=== PATIENT | male | born 1940 | race Caucasian/White ===

== ENCOUNTER 2018-08-31 16:36 | Inpatient (IN) ==
[2018-08-31] MEDS ORDERED: ICU PROTOCOL FOR HYPERGLYCEMIA PRN (19:27)
[2018-08-31] MEDS ORDERED: PIPERACILL/TAZOBAC CONSULT ACTIVE PRN (20:12)
[2018-08-31] MEDS ORDERED: VANCOMYCIN CONSULT ACTIVE PRN (20:12)
[2018-08-31] MEDS ORDERED: VANCOMYCIN HCL 1,000 MG in SODIUM CHLORIDE 0.9% 250 ML IV SCH (20:20)
[2018-08-31] MEDS ORDERED: PATIENT'S HEIGHT AND/OR WEIGHT NEEDED SCH (20:30)
[2018-08-31] MEDS ORDERED: PIPERACILLIN/TAZOBACTAM 3.375 GM in DEXTROSE 5% 100 ML IV ONE (21:00)
[2018-08-31] MEDS ORDERED: VANCOMYCIN HCL 2,000 MG in SODIUM CHLORIDE 0.9% 500 ML IV ONE (21:00)
[2018-08-31 21:14] LABS: Est GFR (African American) 65.2; Est GFR (Non-African American) 56.3
[2018-08-31] MEDS: DOXYCYCLINE HYCLATE 100 MG in DEXTROSE 5% 100 ML IV SCH (21:14)
[2018-08-31] MEDS: SODIUM CHLORIDE 0.9% 1000ML 1,000 ML IV SCH (21:14)
[2018-08-31 21:51] LABS: Appearance Urine Clear (Clear); Bacteria Urine Automated Negative (Negative); Bilirubin Urine Negative (Negative); Blood Urine 3+ (Negative); Color Urine Yellow; Glucose Urine UA Negative (Negative); Ketones Urine Negative (Negative); Leukocyte Esterase Urine Negative (Negative); Nitrite Urine Negative (Negative); Protein Urine 1+ (Negative); Specific Gravity Urine 1.016 (1.000-1.030); Urobilinogen Urine Negative (Negative); pH Urine 5.5 (4.5-7.5)
--- NOTE | 2018-08-31 21:53 | Critical Care Consultation ---
Date of Consultation August 31, 2018 Assessment & Plan (1) Admitted to intensive care unit: Reason Critically Ill: 77-year-old male with acute febrile illness with concerns of sepsis requiring volume resuscitation and close hemodynamic monitoring. Thrombocytopenia with febrile illness and concerns for anaplasmosis. NEURO - * CAM ICU: NEGATIVE * Generalized weakness, myopathy. * Likely 2/2 febrile illness. * No focal neurological deficits on exam. * No imaging necessary at this time. * Will monitor closely for changes in mental status in the thrombocytopenic patient with Anaplasmosis as this can be a common sequela. CARDIAC/VASCULAR - * Hypotension: * SBPs in the 90s in the [place] ED. * Received 2.5L IVF. * Maintaining pressures w/o pressors at this time. * Low threshold for institution of pressors if needed as patient did receive adequate IVF resuscitation. * PMHx HTN: * Will hold on home Rx at this point in the setting of hypotension. * EKG (at outside facility): Sinus Tachycardia@103bpm, No ST/T-wave changes noted. QTc 407ms. * Monitor on telemetry. RESPIRATORY - * Former smoker. * No h/o Pulmonary disease. * Monitor Pulse oximetry closely. * Supplemental O2 PRN. GI/NUTRITION - * No concerns at this time. * CT Abd/Pelvis w/o contrast w/o c/o intraabdominal pathology at this point. * Will add LFTs to next labs as Anaplasmosis is known to cause transaminitis. * Prophylaxis: Zantac RENAL/LYTES - * [place] (presumed): * Initial Cr 1.49 --> no baseline labs present. * Repeat Cr at this facility shows improvement w/ Cr now 1.23. * Will continue to trend. * Replace Lytes appropriately. * Hyponatremia (slight): * Received NSS at ED. * Less concerning for potential of ODS at this time. * IVF: NSS@150mL/hr - * Tyson in place - Strict I&Os. ENDO - * No h/o DM or Thyroid Dz: * BSGs per unit protocol. ISS --> gtt per unit policy. 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 * Initial platelet count of 35 K/uL. * Will monitor closely for s/s of bleeding. Would transfuse at that time if necessary. * No need for transfusion at this time. * Would consider transfusing w/ count less than 20. * Stable H&H at this point. ID - * Anaplasmosis: * Presented at outside facility w/ febrile illness, generalized weakness, myopathies, and chills. Found to be thrombocytopenic. Concerns of recent tick bites. * Agree with addition of Doxy pending Peripheral blood smear results. * Lyme and Anaplasmosis serology pending. Will add Ehrlichiosis screening for completeness. * Anticipate rapid deescalation of antibiotics as peripheral blood smear concerning for anaplasmosis and patient is w/o other contributing sources at this time. * Lactate not elevated. LINES/IV ACCESS - * PIVs x1 * Tyson DVT PROPHYLAXIS - * Will hold on chemoprophylaxis in the setting of thrombocytopenia. * SCDs I have personally spent 35 minutes of critical care time in the direct management of this patient. This is a life/limb threatening event. This includes time spent evaluating patient, direct bedside care, chart review, placing orders, interpretation of diagnostic studies, discussion with consultants, patient, and family members, as well as other required patient management activities. This time is exclusive of all separately billable procedures, and teaching time and separate from and in addition to any other critical care service time. Thank you for allowing us to participate in the care of this patient. Please refer to my attending physician's documentation for any further recommendations. (2) Thrombocytopenia: (3) Hypotension: (4) Infection: (5) Generalized weakness: (6) Myopathy: (7) Joint pain: History of Present Illness Attending Physician: Jamel Rosales MD Patient is a 77-year-old male with a significant past medical history of hypertension who was accepted in transfer by hospitalist group for concerns of sepsis. The patient was seen today at the [place] emergency department for a 4 to 5-day history of generalized weakness, body aches, and chills. He was treated with 2.5 L of normal saline and received IV Rocephin as well as Levaquin. There was concern for possible UTI as the patient was complaining of some apparent dysuria. Other than the above-stated complaints, he currently denies any headaches, dizziness, lightheadedness, chest pain, palpitations, shortness of breath, productive cough, recent upper respiratory infections, recent sick contacts, recent long distance travel, nausea, vomiting, abdominal pain, hematochezia, melena, hematuria, or dysuria. Patient does admit to several tick bites recently as he reports living in an area with a high density of ticks. Allergies Allergy/AdvReac Type Severity Reaction Status Date / Time No Known Allergies Allergy Verified 08/31/18 20:23 Home Medications Home Medications Medication Instructions Recorded Confirmed Type hydrochlorothiazide 25 mg PO DAILY 08/31/18 08/31/18 History pravastatin 20 mg PO DAILY 08/31/18 08/31/18 History ranitidine HCl 150 mg PO DAILY 08/31/18 08/31/18 History Patient History Social History Preferred Language: Israeli Communication Ability: Effective Beliefs That Will Affect Care: None Current Living Situation: Spouse Other Information That Helps Us Care for You: No Feels Safe at Home: Yes Safety Concerns: Feels Safe At This Time Smoking Status: Never smoker Do You Dip or Chew Tobacco: No Second Hand Exposure: No Tobacco Cessation Education Requested by Patient: No Hx Alcohol Use: No Hx Substance Use: No Review of Systems Review of Systems: A complete 10 point review of systems was reviewed with the patient with pertinent positives and negatives as per history of present illness. All else were negative. Physical Exam Physical Exam: VITAL SIGNS - Vital signs and nursing notes were reviewed. GENERAL - 77-year-old male appearing his stated age who is in no acute distress. Communicates well with provider and answers questions appropriately. SKIN - Without rashes. HEAD - NC/AT. EYES - PERRL with EOMI bilaterally. Sclera anicteric. Palpebral conjunctiva pink and moist with no injection noted. EARS - No deformities of external structures noted on gross examination bilaterally. No pain elicited with palpation of the tragus bilaterally. External auditory canals without discharge or otorrhea. Tympanic membranes pearly keating without retraction or bulging. No fluid or purulent material visualized behind the TM. Handle of malleus, umbo, cone of light, pars tensa/flaccid all easily visualized. NOSE - Midline and without cyanosis. No epistaxis or purulent drainage noted. Septum midline without deviation or septal hematoma noted. MOUTH/OROPHARYNX - Without perioral cyanosis. Buccal mucosa pink and moist and without leukoplakia. Tongue midline with equal elevation of palate bilaterally. No tonsillar hypertrophy, erythema, or exudates noted. Good dentition noted. NECK - Neck with FROM. No nuchal rigidity. LUNGS - Chest wall symmetric without accessory muscle use, intercostals retractions, or central cyanosis. Normal vesicular breath sounds CTA B/L. No wheezes, rales, or rhonchi appreciated. CARDIAC - RRR with S1/S2. No murmur, rubs, or gallops appreciated. ABDOMEN - Abdominal contour flat without pulsations or visible masses. BS normoactive all four quadrants. No tenderness, palpable masses, hepatosplenomegaly, or ascites noted. EXTREMITIES - No clubbing or peripheral cyanosis. No pretibial edema present. +3/5 radial and dorsalis pedis pulses palpated throughout. +5/5 strength noted in UE/LE bilaterally. NEUROLOGIC - Cranial nerves II through XII grossly intact. Sensory intact to light touch throughout. PSYCH - A&Ox3 and cooperates fully with examiner. Pt is very pleasant and interacts well with examiner. Results & Data Vital Signs (Past 12 Hours) Vital Signs Temp Pulse Resp BP Pulse Ox 08/31/18 20:00 37.7 C H 99 H 22 94/54 L 94
[2018-08-31 21:57] LABS: Lyme Ab IgG w/WB Rflx Negative (Negative); Lyme Ab IgM w/WB Rflx Negative (Negative)
[2018-09-01] MEDS ORDERED: PIPERACILLIN/TAZOBACTAM 3.375 GM in DEXTROSE 5% 100 ML IV SCH (02:00)
[2018-09-01 05:36] LABS: Hemoglobin 10.7 g/dL (14.0-18.0); Mean Corpuscular Hgb Conc 34.5 g/dL (32-36); Mean Corpuscular Volume 89.6 fL (80-100); Mean Platelet Volume 12.4 fL (7.4-10.4); Platelet Count 24 K/uL (130-400); RDW Coefficient of Variation 14.5 % (11.5-14.5); RDW Standard Deviation 47.5 fL (36.4-46.3); Red Blood Count 3.46 M/uL (4.7-6.1); White Blood Count 2.86 K/uL (4.8-10.8)
[2018-09-01] MEDS: SODIUM CHLORIDE 0.9% 1000ML 1,000 ML IV SCH ×2 (05:36→12:14)
[2018-09-01 05:39] LABS: Platelet Estimate SIGNIFIC DECREASED (Normal)
[2018-09-01 05:48] LABS: BUN Creatinine Ratio 18.2 (10-20); Bilirubin Direct 0.3 mg/dl (0-0.2); Calcium 6.6 mg/dl (8.5-10.1); Creatinine Clr Calc Pharmacy 51.2 ml/min; Est GFR (African American) 72.3; Est GFR (Non-African American) 62.4; Magnesium 1.8 mg/dl (1.8-2.4); Potassium 3.2 mmol/L (3.5-5.1)
[2018-09-01 05:51] LABS: Albumin Globulin Ratio 0.7 (0.9-2); Bilirubin,Total 0.6 mg/dl (0.2-1); Globulin 2.8 gm/dl (2.5-4.0); Phosphorus 2.3 mg/dl (2.5-4.9); Total Protein 4.8 gm/dl (6.4-8.2)
[2018-09-01] MEDS: DOXYCYCLINE HYCLATE 100 MG in DEXTROSE 5% 100 ML IV SCH ×2 (08:33→21:37)
--- NOTE | 2018-09-01 08:55 | History and Physical Report ---
DATE OF ADMISSION: 08/31/2018 CHIEF COMPLAINT: Sepsis. HISTORY OF PRESENT ILLNESS: This is a 77-year-old male with past medical history significant for hyperlipidemia, sarcoidosis of lung, hypertension, GERD, who was transferred from [facility] here for possible sepsis. The patient lives with his . The patient has had weakness since last 4 days and ambulatory dysfunction, tired and falling at home and he was taken to [facility] where he was found to have temperature spike, hypotension and pancytopenia with white count of 3.9, hemoglobin 13.2 and platelets of 35. UA was negative. Lactic acid was 1.7. Chest x-ray is unremarkable. CT of abdomen and pelvis was done before transfer, it is not brought with the patient, they are faxing the results. The patient was given a 30 mL/kg bodyweight fluids, systolic blood pressure is currently in 90s. He otherwise seems to be stable at this time. The patient has history of tick bites in the past. When asked about it, he showed me the left lower extremity jessica region, small lesion, possibly tick bite. He has some headaches, no dizziness, no blurred vision, no earache, no runny nose, no sore throat, no difficulty swallowing. No chest pain, no shortness of breath. No cough, no abdominal pain. Normal bowel and bladder movements. No blood in the stools, no black stools, no hematuria, no burning micturition. No swelling of the legs. ALLERGIES: SIMVASTATIN. PAST MEDICAL HISTORY: As mentioned above. PAST SURGICAL HISTORY: None. MEDICATIONS: The patient is on pravastatin 20 mg p.o. daily, [id number] mg p.o. daily, hydrochlorothiazide 25 mg p.o. daily. FAMILY HISTORY: Significant for skin disorder. SOCIAL HISTORY: Chews tobacco. Alcohol occasional. No drug use. REVIEW OF SYMPTOMS: As per HPI. Rest of review of systems negative. PHYSICAL EXAMINATION: GENERAL: The patient is of moderate build, not in acute distress. VITAL SIGNS: Systolic blood pressure in the 90s, heart rate in like 102, currently afebrile. HEENT: No pallor, no icterus. Pupils equal, round and reactive. NECK: No JVD, no neck mass, no carotid bruit. CARDIOVASCULAR: S1, S2 heard, regular rate and rhythm, no murmur, no gallop. RESPIRATORY SYSTEM: Normal AP diameter. No accessory muscle use. No wheezing, no crackles. ABDOMEN: Soft, bowel sounds present. Nontender. No distention. CENTRAL NERVOUS SYSTEM: Cranial nerves II-XII grossly intact, nonfocal. EXTREMITIES: No edema. Small lesion on the left lower extremity jessica region, questionable tick bite. LABS: Labs done at [facility] shows WBC of 3.9, hemoglobin 13.2, hematocrit 39 and platelets 35. Sodium 129, potassium 3.8, chloride 94, CO2 of 21, BUN 32, creatinine 1.4, serum calcium 7.9. Urinalysis negative for leukocyte esterase and nitrites, moderate blood seen. Lactic acid is 1.7. Chest x-ray, no pneumothorax, no acute osseous process. No pneumonia. Influenza A and B negative. CT abdomen and pelvis was done. We will wait for the results. ASSESSMENT AND PLAN: This is a 77-year-old male who presents with sepsis. 1. Sepsis with hypotension, fever, tachycardia: Lactic acid 1.7, source unclear. Pancytopenia with low platelet count and leukopenia, possible tick-borne illness. History of tick bite in the past, looks like that the lesion in the Left jesisca possible tick bite. There is question of sepsis from UTI.l. We will place him on IV doxycycline, IV Zosyn and IV vancomycin and blood culture, urine cultures,Will check Lyme screen and also peripheral smear for inclusion bodies and we will check for anaplasmosis. Monitor closely in the Intensive Care Unit. 2. Hyponatremia. Sodium 129, IV fluids. We will follow the labs. 3. Acute kidney injury: baseline creatinine is 1.2, presently 1.4. We will follow the labs. 4. Hypertension: On hydrochlorothiazide, which we will hold. 5. Hyperlipidemia: On pravastatin which we will hold. 6. Gastroesophageal reflux disease: On Zantac, which we will continue. 7. Deep venous thrombosis prophylaxis: Sequential compression devices for now. 8. Disposition: Close monitor in the Intensive Care Unit. Level 1 full code. MTDD
[2018-09-01] MEDS ORDERED: POTASSIUM PHOS 3 MMOL/1 ML INFUSION IV STA ×2 (10:05→16:00)
[2018-09-01] MEDS: POTASSIUM CHLORIDE / WTR 10 MEQ/100 ML PLCT IV SCH ×2 (10:15→12:15)
--- NOTE | 2018-09-01 10:20 | Hospitalist Progress Note ---
Date of Service September 01, 2018 Assessment & Plan (1) Severe sepsis: Meets criteria for sepsis as per CMS guideline-presented with hypotension, BP 94/54, tachycardia heart rate 102, fever 37.7 Neutropenia WBC 2.8 Source of infection: Anaplasmosis Recent history of tick bite, peripheral blood smear shows: Small blue cytoplasmic inclusions within polymorphonuclear neutrophils - suspicious for anaplasmosis organisms. Patient was initially treated with IV vancomycin/Zosyn/IV doxycycline-(2 g of IV Rocephin loading dose in [facility] ER) Admitted in ICU for close monitoring of hemodynamics, appreciate input from the evp strategy IV vancomycin/Zosyn-D/rock Continue IV doxycycline 100 mg every 12 [id number] of treatment for anaplasmosis ID evaluation requested Patient will be continued with aggressive IV fluid resuscitation, to correct volume status/dehydration BP improved to 104/74, with resolution of tachycardia Has been afebrile for the past 12 hours-after initiation of antibiotics (2) Anaplasmosis: History of recent tick bite: Left lower extremity anterior jessica, patient does not recall when he got it No characteristic rash/erythema migrans noted in any part of the body Presents with for 5 days of low-grade fever, weakness fatigue, headache, poor appetite Lab shows pancytopenia, including pronounced thrombocytopenia, Peripheral blood smear: Small blue cytoplasmic inclusions within polymorphonuclear neutrophils - suspicious for anaplasmosis organisms. Continue treatment with IV doxycycline ID evaluation requested Present on Admission?: Yes (3) Hypotension: Secondary to poor p.o. intake, dehydration, no report of nausea vomiting or diarrhea CT abdomen pelvis done in outside hospital/located in ED showed no acute pathology Patient responded well with IV fluid resuscitation Did not require pressors No evidence of acute kidney injury, adequate urine output Continue IV fluids, ordered diet, Nutrition consulted for dietary supplements Continue to monitor in ICU until blood pressure stabilizes Present on Admission?: Yes (4) Thrombocytopenia: Secondary to anaplasmosis Platelet count 54 Peripheral blood smear shows no evidence of schistocytes or giant cell Continue to monitor CBC, no evidence of bleeding complication Avoid antiplatelets, anticoagulation Current guideline for platelet transfusion: Platelet count less than 10 K with evidence of bleeding Present on Admission?: Yes (5) Pancytopenia: Due to anaplasmosis-infection leading to bone marrow suppression Peripheral blood smear shows no evidence of any abnormal blast cell Continue supportive care with IV fluids, treatment with IV doxycycline Follow day the CBC Gradual improvement of all cell counts once acute infection is getting resolved Present on Admission?: Yes (6) Hyponatremia: Secondary to poor p.o. intake, dehydration No complaint of nausea vomiting or diarrhea At home medication/antihypertensive HCTZ kept on hold IV fluid with normal saline Noted to have gradual improvement of sodium Continue to monitor Diet advanced Patient is encouraged for fluid intake Present on Admission?: Yes (7) Electrolyte abnormality: Low up with potassium, low phosphorus, possible secondary to acute il lness, poor p.o. intake/dehydration No report of any GI loss Potassium phosphorus replaced, repeat BMP mag level at 1400 Electrolyte closely and adjust as indicated Present on Admission?: Yes (8) Full code status: Discussed with Patient, Full Resuscitation/Patient Is a Full Code (9) DVT prophylaxis: SCD and teds, increase activity as tolerated Pharmacological anticoagulation prohibitive in the setting of thrombocytopenia/anemia Disposition: Lives at home with , was independent in ADLs Noted to have significant functional decline in last 1 week secondary to acute illness Out of bed as tolerated-when blood pressure is stable PT OT evaluation Social service consult for discharge planning for possible rehab versus home health home physical therapy Patient's Krupa Adrian updated over phone Subjective Patient seen in ICU 104, alert and awake, systolic blood pressure 104/56 Patient says he feels very tired, wiped out, no complaint of headache, chest pain or shortness of breath, no abdominal discomfort, no nausea Continues to get IV fluids normal saline at rate of 150 mL/h, with adequate urine output in Tyson catheter Patient has been afebrile, since last midnight Physical Exam Constitutional: WD/WN, vitals as above + ill appearing; no acute distress Eyes: + anicteric sclerae ENMT: Mouth: + oral mucosal abnormality (Dry oral mucosa) Dry oral mucous membrane Neck: trachea midline, no thyromegaly Respiratory: normal respiratory effort, lungs clear to auscultation Cardiovascular: RRR, no murmur, no edema Gastrointestinal (Abdomen): normal bowel sounds, soft, nontender, no hepatosplenomegaly Musculoskeletal: Small 2 mm wound noted on jessica of left lower extremity, no surrounding erythema, no typical rash suggestive of Lyme disease /no erythema migraines- Skin: + wound Small 2 mm open wound on left lower extremity, anterior jessica, at the site of prior tick bite, no surrounding erythema, no rash or erythema migrans No other rash or skin lesion/wound noted in any other part of the body Neurologic: PERRL, EOMI, accommodation nl, no face palsy, no dysarthria Patient denies of any diplopia, no weakness or paresthesia Psychiatric: A+Ox3, euthymic affect Results & Data Vital Signs (Past 12 Hours) Vital Signs Temp Pulse Pulse Resp BP BP Pulse Ox 09/01/18 10:02 75 16 104/56 L 93 09/01/18 09:02 76 1 L 102/56 L 94 09/01/18 08:02 36.1 C L 77 103/56 L 93 09/01/18 06:00 36.9 C 75 18 101/56 L 97 09/01/18 05:00 75 20 99/54 L 96 09/01/18 04:00 75 18 102/50 L 96 09/01/18 03:00 37.7 C H 76 20 98/51 L 96 09/01/18 02:00 78 18 99/50 L 78 L 09/01/18 01:00 83 18 100/50 L 96 09/01/18 00:00 37.4 C 86 18 99/50 L 97 08/31/18 23:00 91 H 20 102/53 L 94 (1) Hypotension Hypotension type: hypotension due to hypovolemia Qualified Code(s): I95.89 - Other hypotension; E86.1 - Hypovolemia
--- NOTE | 2018-09-01 10:21 | Critical Care Progress Note ---
Date of Service September 01, 2018 Assessment & Plan (1) Admitted to intensive care unit: Neuro- awake alert CV- HD stable Pulmonary- sat well ID- sepsis with evidence of organ dysfunction likely due to anaplasmosis. doxycycline. follow cultures Renal- cr ok. urinary retention s/p babcock GI- diet as tolerated Heme- pancytopenia likely related to anaplasmosis. watch for bleeding. SCD proph Endocrine- blood sugars controlled Dispo- ok to transfer to floor Subjective feelin better this ma blood pressures remained stable Physical Exam Physical Exam: Constitutional: Comfortable NAD HEENT: normocephalic atraumatic. CV: RRR nl s1,s2 no murmurs rubs or gallops Lungs: clear to auscultation bilaterally. no accessory muscle use Abd: soft nontender nondistended. normal bowel sounds Ext: no edema. no cyanosis, no clubbing Skin: warm dry Neuro: alert and oriented. moving all extremities Psych: normal mood and affect Results & Data Vital Signs (Past 12 Hours) Vital Signs Temp Pulse Pulse Resp BP BP Pulse Ox 09/01/18 10:02 75 16 104/56 L 93 09/01/18 09:02 76 1 L 102/56 L 94 09/01/18 08:02 36.1 C L 77 103/56 L 93 09/01/18 06:00 36.9 C 75 18 101/56 L 97 09/01/18 05:00 75 20 99/54 L 96 09/01/18 04:00 75 18 102/50 L 96 09/01/18 03:00 37.7 C H 76 20 98/51 L 96 09/01/18 02:00 78 18 99/50 L 78 L 09/01/18 01:00 83 18 100/50 L 96 09/01/18 00:00 37.4 C 86 18 99/50 L 97 08/31/18 23:00 91 H 20 102/53 L 94 Laboratory Results Laboratory Results - last 24 hr 08/31/18 08/31/18 08/31/18 20:34 20:34 20:40 WBC RBC Hgb Hct MCV MCH MCHC RDW Std Deviation RDW Coeff of Isiah Plt Count MPV Platelet Estimate Peripher Smr Path Cons Sodium Potassium Chloride Carbon Dioxide Anion Gap BUN Creatinine Est Cr Clr Drug Dosing Est GFR ( Amer) Est GFR (Non-Af Amer) BUN/Creatinine Ratio Glucose Lactate 1.5 Calcium Phosphorus Magnesium Total Bilirubin Direct Bilirubin AST ALT Alkaline Phosphatase Total Protein Albumin Globulin Albumin/Globulin Ratio Urine Color Urine Appearance Urine pH Ur Specific [place] Urine Protein Urine Glucose (UA) Urine Ketones Urine Blood Urine Nitrite Urine Bilirubin Urine Urobilinogen Ur Leukocyte Esterase Urine WBC (Auto) Urine RBC (Auto) U Hyaline Cast (Auto) U Epithel Cells (Auto) Urine Bacteria (Auto) Nasal Screen MRSA (PCR) Lyme Disease IgG Ab Negative Lyme Disease IgM Ab Negative 08/31/18 08/31/18 08/31/18 20:40 21:15 Unknown WBC RBC Hgb Hct MCV MCH MCHC RDW Std Deviation RDW Coeff of Isiah Plt Count MPV Platelet Estimate Peripher Smr Path Cons Sodium Potassium Chloride Carbon Dioxide Anion Gap BUN Creatinine 1.23 Est Cr Clr Drug Dosing 47.0 Est GFR ( Amer) 65.2 Est GFR (Non-Af Amer) 56.3 BUN/Creatinine Ratio Glucose Lactate Calcium Phosphorus Magnesium Total Bilirubin Direct Bilirubin AST ALT Alkaline Phosphatase Total Protein Albumin Globulin Albumin/Globulin Ratio Urine Color Yellow Urine Appearance Clear Urine pH 5.5 Ur Specific [place] 1.016 Urine Protein 1+ H Urine Glucose (UA) Negative Urine Ketones Negative Urine Blood 3+ H Urine Nitrite Negative Urine Bilirubin Negative Urine Urobilinogen Negative Ur Leukocyte Esterase Negative Urine WBC (Auto) 1-5 Urine RBC (Auto) 10-30 H U Hyaline Cast (Auto) 1-5 U Epithel Cells (Auto) 10-20 H Urine Bacteria (Auto) Negative Nasal Screen MRSA (PCR) Negative Lyme Disease IgG Ab Lyme Disease IgM Ab 09/01/18 09/01/18 04:48 04:48 WBC 2.86 L RBC 3.46 L Hgb 10.7 L Hct 31.0 L MCV 89.6 MCH 30.9 MCHC 34.5 RDW Std Deviation 47.5 H RDW Coeff of Isiah 14.5 Plt Count 24 L* MPV 12.4 H Platelet Estimate SIGNIFIC DECREASED Peripher Smr Path Cons Sodium 134 L Potassium 3.2 L Chloride 106 Carbon Dioxide 23 Anion Gap 5.0 BUN 21 H Creatinine 1.13 Est Cr Clr Drug Dosing 51.2 Est GFR ( Amer) 72.3 Est GFR (Non-Af Amer) 62.4 BUN/Creatinine Ratio 18.2 Glucose 97 Lactate Calcium 6.6 L Phosphorus 2.3 L Magnesium 1.8 Total Bilirubin 0.6 Direct Bilirubin 0.3 H AST 77 H ALT 55 Alkaline Phosphatase 57 Total Protein 4.8 L Albumin 2.0 L Globulin 2.8 Albumin/Globulin Ratio 0.7 L Urine Color Urine Appearance Urine pH Ur Specific [place] Urine Protein Urine Glucose (UA) Urine Ketones Urine Blood Urine Nitrite Urine Bilirubin Urine Urobilinogen Ur Leukocyte Esterase Urine WBC (Auto) Urine RBC (Auto) U Hyaline Cast (Auto) U Epithel Cells (Auto) Urine Bacteria (Auto) Nasal Screen MRSA (PCR) Lyme Disease IgG Ab Lyme Disease IgM Ab
[2018-09-01] MEDS ORDERED: POTASSIUM PHOSPHATE 6 MMOL in SODIUM CHLORIDE 0.9% 250 ML IV ONE (10:30)
[2018-09-01] MEDS ORDERED: VANCOMYCIN HCL 1,250 MG in SODIUM CHLORIDE 0.9% 250 ML IV SCH (14:00)
[2018-09-01 15:11] LABS: BUN Creatinine Ratio 18.1 (10-20); Creatinine Clr Calc Pharmacy 55.1 ml/min; Est GFR (Non-African American) 68.1; Magnesium 1.9 mg/dl (1.8-2.4); Potassium 3.6 mmol/L (3.5-5.1)
--- NOTE | 2018-09-01 15:32 | Infectious Disease Consult ---
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 Treatment with doxycycline appropriate, will likely need in the range of 7 to 10 days of therapy depending on clinical response. Would follow CBC and liver enzymes. Will follow. History of Present Illness Reason for Consultation: Sepsis, anaplasmosis Attending Physician: Clari Jurado MD History of Present Illness 77-year-old male with history of hypertension, sarcoidosis, hyperlipidemia, GERD, who was in usual state of health until approximately 5 days prior to admission when he had onset of fever, weakness, and generalized myalgias and arthralgias with mild headache. Symptoms gradually worsening and it became difficult for patient to walk, and eventually he was brought to [facility] where he was found to have evidence of sepsis associated with neutropenia and thrombocytopenia and transferred here for further management. On review of his peripheral smear, intra-cytoplasmic inclusions consistent with anaplasmosis were seen. He is now been started on doxycycline and is feeling better today with decrease in temperature, negative blood cultures, and decrease in myalgias and arthralgias. Mental status has improved. Allergies Allergy/AdvReac Type Severity Reaction Status Date / Time No Known Allergies Allergy Verified 08/31/18 20:23 Home Medications Home Medications Medication Instructions Recorded Confirmed Type hydrochlorothiazide 25 mg PO DAILY 08/31/18 08/31/18 History pravastatin 20 mg PO DAILY 08/31/18 08/31/18 History ranitidine HCl 150 mg PO DAILY 08/31/18 08/31/18 History Patient History Social History Preferred Language: Thai Communication Ability: Effective Beliefs That Will Affect Care: None Current Living Situation: Spouse Other Information That Helps Us Care for You: No Feels Safe at Home: Yes Safety Concerns: Feels Safe At This Time Smoking Status: Never smoker Do You Dip or Chew Tobacco: No Second Hand Exposure: No Tobacco Cessation Education Requested by Patient: No Hx Alcohol Use: No Hx Substance Use: No Review of Systems Review of Systems: All systems reviewed & are unremarkable except as noted in HPI & below Physical Exam Constitutional: WD/WN, vitals as above comfortable; no acute distress Eyes: PERRL, conjunctivae normal, anicteric sclerae ENMT: external ear and nose normal, oropharynx normal Neck: trachea midline, no thyromegaly neck nontender Respiratory: normal respiratory effort, lungs clear to auscultation normal percussion; does not use accessory muscles Cardiovascular: Rate/Rhythm: regular rate and regular rhythm Heart Sounds: normal S1 and normal S2; no gallop, no murmur and no cardiac rub Vessels: normal peripheral pulses; no JVD Gastrointestinal (Abdomen): normal bowel sounds, soft, nontender, no hepatosplenomegaly Musculoskeletal: no cyanosis or clubbing, extremities motor strength 5/5 Spine: thoracic spine normal to inspection and lumbar spine normal to inspection; no cervical spinal tenderness Skin: no rashes, warm and dry normal turgor; no lesions Neurologic: patellar DTR's 2+ bilat, sensation intact no focal motor deficits Psychiatric: A+Ox3, euthymic affect Orientation: cooperative Lymphatic: no cervical or axillary lymphadenopathy no inguinal lymphadenopathy Results & Data Vital Signs (Past 12 Hours) Vital Signs Temp Pulse Pulse Resp BP BP Pulse Ox 09/01/18 14:02 75 20 110/59 L 95 09/01/18 13:02 76 16 94/53 L 95 09/01/18 12:02 75 22 102/56 L 93 09/01/18 11:02 75 17 98/56 L 93 09/01/18 10:02 75 16 104/56 L 93 09/01/18 09:02 76 1 L 102/56 L 94 09/01/18 08:02 36.1 C L 77 103/56 L 93 09/01/18 06:00 36.9 C 75 18 101/56 L 97 09/01/18 05:00 75 20 99/54 L 96 09/01/18 04:00 75 18 102/50 L 96 Laboratory Results Short CBC 09/01/18 Range/Units 04:48 WBC 2.86 L (4.8-10.8) K/uL Hgb 10.7 L (14.0-18.0) g/dL Hct 31.0 L (42-52) % Plt Count 24 L* (130-400) K/uL BMP 08/31/18 09/01/18 09/01/18 20:40 04:48 14:47 Sodium 134 L 138 Potassium 3.2 L 3.6 Chloride 106 106 Carbon Dioxide 23 23 BUN 21 H 19 H Creatinine 1.23 1.13 1.05 Glucose 97 96 Calcium 6.6 L 7.0 L Liver Function 09/01/18 Range/Units 04:48 Total Bilirubin 0.6 (0.2-1) mg/dl Direct Bilirubin 0.3 H (0-0.2) mg/dl AST 77 H (15-37) U/L ALT 55 (12-78) U/L Alkaline Phosphatase 57 (45-117) U/L Albumin 2.0 L (3.4-5.0) gm/dl Urine 08/31/18 Range/Units 21:15 Urine Color Yellow Urine Appearance Clear (Clear) Urine pH 5.5 (4.5-7.5) Ur Specific [place] 1.016 (1.000-1.030) Urine Protein 1+ H (Negative) Urine Glucose (UA) Negative (Negative) Diagnostic Findings Microbiology 08/31/18 21:15 Urine,Clean Catch Urine Culture - Preliminary No growth - Less than 1,000 colonies/mL, Final report to follow.
[2018-09-01] MEDS: LACTATED RINGER'S 1,000 ML IV SCH (15:52)
[2018-09-01] MEDS ORDERED: POT PHOSPHATE MONOBASIC W/ SOD TAB PO STA (15:59)
[2018-09-01] MEDS ORDERED: POTASSIUM PHOSPHATE 6 MMOL in 0.9 % SODIUM CHLORIDE 100 ML IV ONE (16:30)
[2018-09-01] MEDS ORDERED: SODIUM PHOSPHATE 3 MMOL/1 ML INFUSION IV STA (20:38)
[2018-09-01] MEDS ORDERED: SODIUM PHOSPHATE 30 MMOL in SODIUM CHLORIDE 0.9% 500 ML IV ONE (20:45)
[2018-09-02] MEDS: LACTATED RINGER'S 1,000 ML IV SCH ×4 (02:51→18:42)
[2018-09-02 07:13] LABS: Albumin Level 1.8 gm/dl (3.4-5.0); BUN Creatinine Ratio 18.5 (10-20); Calcium 6.9 mg/dl (8.5-10.1); Creatinine Clr Calc Pharmacy 69.8 ml/min; Est GFR (African American) 93.9; Magnesium 1.9 mg/dl (1.8-2.4); Potassium 3.1 mmol/L (3.5-5.1)
[2018-09-02 07:27] LABS: Albumin Globulin Ratio 0.7 (0.9-2); Bilirubin,Total 0.6 mg/dl (0.2-1); Globulin 2.7 gm/dl (2.5-4.0); Phosphorus 2.3 mg/dl (2.5-4.9); Total Protein 4.5 gm/dl (6.4-8.2)
[2018-09-02 08:12] LABS: Basophils # (auto) 0.02 K/uL (0-0.2); Basophils % (auto) 0.7 %; Eosinophils # (auto) 0.01 K/uL (0-0.5); Eosinophils % (auto) 0.4 %; Giant Platelets 1+; Hemoglobin 10.9 g/dL (14.0-18.0); Immature Granulocytes # (auto) 0.01 K/uL (0.00-0.02); Immature Granulocytes % (auto) 0.4 %; Lymphocytes # (auto) 0.35 K/uL (1.2-3.4); Lymphocytes % (auto) 13.1 %; Mean Corpuscular Hgb Conc 35.2 g/dL (32-36); Mean Corpuscular Volume 88.1 fL (80-100); Mean Platelet Volume 11.5 fL (7.4-10.4); Monocytes % (auto) 7.5 %; Neutrophils # (auto) 2.09 K/uL (1.4-6.5); Neutrophils % (auto) 77.9 %; Platelet Count 30 K/uL (130-400); Platelet Estimate Decreased (Normal); RDW Coefficient of Variation 14.8 % (11.5-14.5); RDW Standard Deviation 47.3 fL (36.4-46.3); Red Blood Count 3.52 M/uL (4.7-6.1); White Blood Count 2.68 K/uL (4.8-10.8)
[2018-09-02] MEDS: DOXYCYCLINE HYCLATE 100 MG in DEXTROSE 5% 100 ML IV SCH ×2 (08:42→20:32)
--- NOTE | 2018-09-02 17:26 | Hospitalist Progress Note ---
Date of Service September 02, 2018 Assessment & Plan (1) Severe sepsis: Resolved, vitals remained stable, Stable to be transferred off telemetry Tolerating the diet well, adequate urine output, will DC IV fluids Admitted with hypotension tachycardia fever Meets criteria for sepsis as per CMS guideline-presented with hypotension, BP 94/54, tachycardia heart rate 102, fever 37.7 Neutropenia WBC 2.8 Source of infection: Anaplasmosis Recent history of tick bite, peripheral blood smear shows: Small blue cytoplasmic inclusions within polymorphonuclear neutrophils - suspicious for anaplasmosis organisms. Patient was initially treated with IV vancomycin/Zosyn/IV doxycycline-(2 g of IV Rocephin loading dose in [facility]) Admitted in ICU for close monitoring of hemodynamics, appreciate input from the motor vehicle assembler IV vancomycin/Zosyn-D/rock Treated with IV doxycycline 100 mg every 12 [id number] of treatment for anaplasmosis ID evaluation requested-appreciate input plan for transition to p.o. doxycycline in next 24 to 48 hours if patient remains clinically stable Will need total 10 to 14 days of treatment (2) Anaplasmosis: History of recent tick bite: Left lower extremity anterior jessica, patient does not recall when he got it No characteristic rash/erythema migrans noted in any part of the body Presents with for 5 days of low-grade fever, weakness fatigue, headache, poor appetite Lab shows pancytopenia, including pronounced thrombocytopenia, Peripheral blood smear: Small blue cytoplasmic inclusions within polymorphonuclear neutrophils - suspicious for anaplasmosis organisms. Patient treated with doxycycline, clinically much improved, ID evaluation appreciated Present on Admission?: Yes (3) Hypotension: Resolved, blood pressure stable, will DC IV fluids, antihypertensive hydrochlorothiazide was resumed, stable to be transferred to medical floor Presented with profound hypotension secondary to Secondary to poor p.o. intake, dehydration, no report of nausea vomiting or diarrhea CT abdomen pelvis done in outside hospital/located in ED showed no acute pathology Patient responded well with IV fluid resuscitation Did not require pressors No evidence of acute kidney injury, adequate urine output (4) Thrombocytopenia: Secondary to anaplasmosis Platelet count 54 Peripheral blood smear shows no evidence of schistocytes or giant cell Continue to monitor CBC, no evidence of bleeding complication Avoid antiplatelets, anticoagulation Current guideline for platelet transfusion: Platelet count less than 10 K with evidence of bleeding (5) Pancytopenia: Due to anaplasmosis-infection leading to bone marrow suppression Peripheral blood smear shows no evidence of any abnormal blast cell Continue supportive care with IV fluids, treatment with IV doxycycline Follow day the CBC Gradual improvement of all cell counts once acute infection is getting resolved (6) Hyponatremia: Resolved, with IV nss IV fluid discontinued, home meds HCTZ as blood pressure remains stable Patient presented with profound hypotension : Secondary to poor p.o. intake, dehydration No complaint of nausea vomiting or diarrhea (7) Electrolyte abnormality: low potassium, low phosphorus, :corrected, follow electrolytes (8) Full code status: Discussed with Patient, Full Resuscitation/Patient Is a Full Code (9) DVT prophylaxis: SCD and teds, increase activity as tolerated Pharmacological anticoagulation prohibitive in the setting of thrombocytopenia/anemia Disposition: Patient doing clinically very well, stable to be discharged to medical floor Plan to discharge home in next 24 to 48 hours if medically stable Subjective Patient feels much better today, afebrile, blood pressure has been stable No fever chills No shortness of breath, no dyspnea on exertion or cough Physical Exam Constitutional: WD/WN, vitals as above no acute distress Eyes: + anicteric sclerae Neck: trachea midline, no thyromegaly Respiratory: normal respiratory effort, lungs clear to auscultation Cardiovascular: RRR, no murmur, no edema Gastrointestinal (Abdomen): normal bowel sounds, soft, nontender, no hepatosplenomegaly Neurologic: PERRL, EOMI, accommodation nl, no face palsy, no dysarthria Psychiatric: A+Ox3, euthymic affect Results & Data Vital Signs (Past 12 Hours) Vital Signs Temp Pulse Pulse Resp BP Pulse Ox 09/02/18 15:08 36.5 C 66 18 111/67 97 09/02/18 11:52 36.3 C L 71 18 110/66 95 09/02/18 08:02 36.7 C 76 17 117/62 92 09/02/18 08:00 73 (1) Hypotension Hypotension type: hypotension due to hypovolemia Qualified Code(s): I95.89 - Other hypotension; E86.1 - Hypovolemia
--- NOTE | 2018-09-02 19:03 | Infectious Disease Progress Nt ---
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 Treatment with doxycycline appropriate, will likely need in the range of 7 to 10 days of therapy depending on clinical response. Would follow CBC and liver enzymes. Will follow. Subjective Patient seen in follow-up for anaplasmosis. Feeling much better today, out of ICU, afebrile, hemodynamically stable. Offers no new complaints. Platelet count slightly improved. Review of Systems Review of Systems: All systems reviewed & are unremarkable except as noted in HPI & below Physical Exam Constitutional: WD/WN, vitals as above comfortable; no acute distress Eyes: PERRL, conjunctivae normal, anicteric sclerae ENMT: external ear and nose normal, oropharynx normal Neck: trachea midline, no thyromegaly neck nontender Respiratory: normal respiratory effort, lungs clear to auscultation normal percussion; does not use accessory muscles Cardiovascular: Rate/Rhythm: regular rate and regular rhythm Heart Sounds: normal S1 and normal S2; no gallop, no murmur and no cardiac rub Vessels: normal peripheral pulses; no JVD Gastrointestinal (Abdomen): normal bowel sounds, soft, nontender, no hepatosplenomegaly Musculoskeletal: no cyanosis or clubbing, extremities motor strength 5/5 Spine: thoracic spine normal to inspection and lumbar spine normal to inspection; no cervical spinal tenderness Skin: no rashes, warm and dry normal turgor; no lesions Neurologic: patellar DTR's 2+ bilat, sensation intact no focal motor deficits Psychiatric: A+Ox3, euthymic affect Orientation: cooperative Lymphatic: no cervical or axillary lymphadenopathy no inguinal lymphadenopathy Results & Data Vital Signs (Past 12 Hours) Vital Signs Temp Pulse Pulse Resp BP Pulse Ox 09/02/18 15:08 36.5 C 66 18 111/67 97 09/02/18 11:52 36.3 C L 71 18 110/66 95 09/02/18 08:02 36.7 C 76 17 117/62 92 09/02/18 08:00 73 Laboratory Results Short CBC 09/02/18 Range/Units 06:02 WBC 2.68 L (4.8-10.8) K/uL Hgb 10.9 L (14.0-18.0) g/dL Hct 31.0 L (42-52) % Plt Count 30 L (130-400) K/uL BMP 09/02/18 06:02 Sodium 139 Potassium 3.1 L Chloride 108 H Carbon Dioxide 25 BUN 17 Creatinine 0.91 Glucose 96 Calcium 6.9 L Liver Function 09/02/18 Range/Units 06:02 Total Bilirubin 0.6 (0.2-1) mg/dl AST 108 H (15-37) U/L ALT 70 (12-78) U/L Alkaline Phosphatase 61 (45-117) U/L Albumin 1.8 L (3.4-5.0) gm/dl Diagnostic Findings Microbiology 08/31/18 21:15 Urine,Clean Catch Urine Culture - Final No growth - less than 1,000 colonies/mL. 08/31/18 20:34 Blood Blood Culture - Preliminary No growth to date. 08/31/18 20:40 Blood Blood Culture - Preliminary No growth to date.
[2018-09-03 07:41] LABS: Hematocrit (blood only) 36.8 % (42-52); Hemoglobin 12.7 g/dL (14.0-18.0); Mean Corpuscular Hgb Conc 34.5 g/dL (32-36); Mean Corpuscular Volume 87.8 fL (80-100); Mean Platelet Volume 11.8 fL (7.4-10.4); Platelet Count 60 K/uL (130-400); RDW Coefficient of Variation 14.7 % (11.5-14.5); RDW Standard Deviation 47.6 fL (36.4-46.3); Red Blood Count 4.19 M/uL (4.7-6.1); White Blood Count 3.21 K/uL (4.8-10.8)
[2018-09-03 08:09] LABS: Basophils # (auto) 0.01 K/uL (0-0.2); Basophils % (auto) 0.3 %; Eosinophils # (auto) 0.03 K/uL (0-0.5); Eosinophils % (auto) 0.9 %; Lymphocytes # (auto) 0.52 K/uL (1.2-3.4); Lymphocytes % (auto) 16.2 %; Monocytes # (auto) 0.26 K/uL (0.11-0.59); Monocytes % (auto) 8.1 %; Neutrophils # (auto) 2.39 K/uL (1.4-6.5); Neutrophils % (auto) 74.5 %
[2018-09-03 08:14] LABS: BUN Creatinine Ratio 18.2 (10-20); Calcium 7.7 mg/dl (8.5-10.1); Creatinine Clr Calc Pharmacy 74.7 ml/min; Est GFR (African American) 97.4; Phosphorus 1.9 mg/dl (2.5-4.9); Potassium 3.3 mmol/L (3.5-5.1)
[2018-09-03] MEDS ORDERED: PRAVASTATIN SOD 20 MG TAB PO SCH (09:00)
[2018-09-03] MEDS ORDERED: hydroCHLOROthiazide 25 MG TAB PO SCH (09:00)
[2018-09-03] MEDS: DOXYCYCLINE HYCLATE 100 MG in DEXTROSE 5% 100 ML IV SCH (09:18)
--- NOTE | 2018-09-03 11:30 | Infectious Disease Progress Nt ---
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 Treatment with doxycycline appropriate, would complete 14 days total of therapy. Would like to see patient in follow-up in 7 to 10 days in the office. Subjective Patient feels much better today, afebrile, blood pressure has been stable No fever chills No shortness of breath, no dyspnea on exertion or cough. White count and platelets improved. Review of Systems Review of Systems: All systems reviewed & are unremarkable except as noted in HPI & below Physical Exam Constitutional: WD/WN, vitals as above comfortable; no acute distress Eyes: PERRL, conjunctivae normal, anicteric sclerae ENMT: external ear and nose normal, oropharynx normal Neck: trachea midline, no thyromegaly neck nontender Respiratory: normal respiratory effort, lungs clear to auscultation normal percussion; does not use accessory muscles Cardiovascular: Rate/Rhythm: regular rate and regular rhythm Heart Sounds: normal S1 and normal S2; no gallop, no murmur and no cardiac rub Vessels: normal peripheral pulses; no JVD Gastrointestinal (Abdomen): normal bowel sounds, soft, nontender, no he patosplenomegaly Musculoskeletal: no cyanosis or clubbing, extremities motor strength 5/5 Spine: thoracic spine normal to inspection and lumbar spine normal to inspection; no cervical spinal tenderness Skin: no rashes, warm and dry normal turgor; no lesions Neurologic: patellar DTR's 2+ bilat, sensation intact no focal motor deficits Psychiatric: A+Ox3, euthymic affect Orientation: cooperative Lymphatic: no cervical or axillary lymphadenopathy no inguinal lymphadenopathy Results & Data Vital Signs (Past 12 Hours) Vital Signs Temp Pulse Resp BP Pulse Ox 09/03/18 08:00 36.8 C 80 18 141/81 H 92 09/03/18 00:00 36.7 C 75 20 135/65 96 09/02/18 23:54 36.7 C 75 20 135/65 96 Laboratory Results Short CBC 09/03/18 Range/Units 07:29 WBC 3.21 L (4.8-10.8) K/uL Hgb 12.7 L (14.0-18.0) g/dL Hct 36.8 L (42-52) % Plt Count 60 L D (130-400) K/uL BMP 09/03/18 07:29 Sodium 141 Potassium 3.3 L Chloride 109 H Carbon Dioxide 25 BUN 15 Creatinine 0.85 Glucose 101 H Calcium 7.7 L Diagnostic Findings Microbiology 08/31/18 21:15 Urine,Clean Catch Urine Culture - Final No growth - less than 1,000 colonies/mL. 08/31/18 20:34 Blood Blood Culture - Preliminary No growth to date. 08/31/18 20:40 Blood Blood Culture - Preliminary No growth to date.
[2018-09-03] MEDS ORDERED: DOXYCYCLINE HYCLATE 100 MG CAP PO SCH (21:00)
--- NOTE | 2018-09-04 14:44 | Discharge Summary ---
Date of Service September 04, 2018 Admission HPI Per Admitting Provider DICTATED BY: David Laird MD DATE OF ADMISSION: 08/31/2018 CHIEF COMPLAINT: Sepsis. HISTORY OF PRESENT ILLNESS: This is a 77-year-old male with past medical history significant for hyperlipidemia, sarcoidosis of lung, hypertension, GERD, who was transferred from [facility] here for possible sepsis. The patient lives with his . The patient has had weakness since last 4 days and ambulatory dysfunction, tired and falling at home and he was taken to [facility] where he was found to have temperature spike, hypotension and pancytopenia with white count of 3.9, hemoglobin 13.2 and platelets of 35. UA was negative. Lactic acid was 1.7. Chest x-ray is unremarkable. CT of abdomen and pelvis was done before transfer, it is not brought with the patient, they are faxing the results. The patient was given a 30 mL/kg bodyweight fluids, systolic blood pressure is currently in 90s. He otherwise seems to be stable at this time. The patient has history of tick bites in the past. When asked about it, he showed me the left lower extremity jessica region, small lesion, possibly tick bite. He has some headaches, no dizziness, no blurred vision, no earache, no runny nose, no sore throat, no difficulty swallowing. No chest pain, no shortness of breath. No cough, no abdominal pain. Normal bowel and bladder movements. No blood in the stools, no black stools, no hematuria, no burning micturition. No swelling of the legs. Principal Diagnosis ANAPLAMOSIS Discharge Exam Constitutional WD/WN, vitals as above + ill appearing and comfortable; no acute distress Eyes PERRL, conjunctivae normal, anicteric sclerae + anicteric sclerae ENMT external ear and nose normal, oropharynx normal Mouth: + oral mucosal abnormality (Dry oral mucosa) Neck trachea midline, no thyromegaly neck nontender Respiratory normal respiratory effort, lungs clear to auscultation normal percussion; does not use accessory muscles Cardiovascular RRR, no murmur, no edema Rate/Rhythm: regular rate and regular rhythm Heart Sounds: normal S1 and normal S2; no gallop, no murmur and no cardiac rub Vessels: normal peripheral pulses; no JVD Gastrointestinal (Abdomen) normal bowel sounds, soft, nontender, no hepatosplenomegaly Musculoskeletal no cyanosis or clubbing, extremities motor strength 5/5 Spine: thoracic spine normal to inspection and lumbar spine normal to inspection; no cervical spinal tenderness Skin no rashes, warm and dry normal turgor and + wound; no lesions Neurologic patellar DTR's 2+ bilat, sensation intact and PERRL, EOMI, accommodation nl, no face palsy, no dysarthria no focal motor deficits Psychiatric A+Ox3, euthymic affect Orientation: cooperative Lymphatic no cervical or axillary lymphadenopathy no inguinal lymphadenopathy Discharge Data Allergies Allergy/AdvReac Type Severity Reaction Status Date / Time No Known Allergies Allergy Verified 08/31/18 20:23 Consultations 08/31/18 19:28 Consult Case Management - Discharge Planning Routine 08/31/18 19:31 Consult Applications Coordinator Routine 09/01/18 10:30 Consult Infectious Diseases Routine Hospital Course (1) Severe sepsis: Resolved, vitals remained stable, ambulating independently in room no fever or joint pain energy /appetite improved to baseline Stable to be discharged home today with 2 weeks of PO Doxycycline pt was sent to [facility] from [facility] ER for hypotension /tachycardia /fever Met criteria for sepsis as per CMS guideline-presented with hypotension, BP 94/54, tachycardia heart rate 102, fever 37.7 Neutropenia WBC 2.8 Source of infection: Anaplasmosis Recent history of tick bite, peripheral blood smear shows: Small blue cytoplasmic inclusions within polymorphonuclear neutrophils - suspicious for anaplasmosis organisms. Patient was initially treated with IV vancomycin/Zosyn/IV doxycycline-(2 g of IV Rocephin loading dose given in [facility]) Admitted in ICU for close monitoring of hemodynamics, appreciate input from the death claim clerk IV vancomycin/Zosyn-D/rock Treated with IV doxycycline 100 mg every 12 [id number] of treatment for anaplasmosis ID evaluation requested-appreciate input abx changed to PO Doxycycline pt has been doing well , back to baseline stable to be discharged home with PO Doxycycline Will need total 114 days of treatment (2) Anaplasmosis: History of recent tick bite: Left lower extremity anterior jessica, patient does not recall when he got it No characteristic rash/erythema migrans noted in any part of the body Presents with for 5 days of low-grade fever, weakness fatigue, headache, poor appetite Lab shows pancytopenia, including pronounced thrombocytopenia, Peripheral blood smear: Small blue cytoplasmic inclusions within polymorphonuclear neutrophils - suspicious for anaplasmosis organisms. Patient treated with doxycycline, clinically much improved, ID evaluation appreciated will be discharged on PO Doxycycline for [address] Moraes follow up in 7-10 days (3) Hypotension: presented with profound hypotension due to sepsis -due to Anaplasmosis Resolved, blood pressure stable, after IV resuscitation did not require pressores CT abdomen pelvis done in outside hospital/located in ED showed no acute pathology No evidence of acute kidney injury, adequate urine output (4) Thrombocytopenia: Secondary to anaplasmosis Platelet count 54 Peripheral blood smear shows no evidence of schistocytes or giant cell Continue to monitor CBC, no evidence of bleeding complication Avoid antiplatelets, anticoagulation Current guideline for platelet transfusion: Platelet count less than 10 K with evidence of bleeding stable to be discharged home today pt is asked to avoid Aspirin , nSAID's repeat lab : CBC in clinic in 1 week (5) Pancytopenia: Due to anaplasmosis-infection leading to bone marrow suppression Peripheral blood smear shows no evidence of any abnormal blast cells CBC improved with Continues supportive care with IV fluids, treatment with IV doxycycline expect Gradual improvement of all cell counts once acute infection gets resolved out pt lab: CBC with hospital follow up appointment -scheduled next week (6) Hyponatremia: Resolved, with IV nss due to sepsis /poor po intake .dehydration tolerating diet well/off IVF no nausea /vomiting or diarrhea BP stable home BP med HCTZ resumed (7) Electrolyte abnormality: low potassium, low phosphorus, :corrected, (8) Full code status: Discussed with Patient, Full Resuscitation/Patient Is a Full Code (9) DVT prophylaxis: SCD and teds, increase activity as tolerated Pharmacological anticoagulation prohibitive in the setting of thrombocytopenia/anemia Disposition: stable to be discharged home today Total Time Total Time Spent Total Time Spent (In Minutes): APPROX 45 MINS Total Time Includes: Examination of the Patient, Discharge Planning, Medication Reconciliation and Communication With Other Providers Discharge Plan Discharge Items Patient Disposition: Home - Self-Care Reason For Visit: SEPSIS Discharge Diagnosis: ANAPLASMOSIS /SEPSIS Discharge Goals: Decrease discomfort Activity: Resume your previous activity Non-emergency contact: Primary Care Provider Call non-emergency contact if: you have any medication questions Follow-up/Referrals: Cholo Moraes MD [Physician] - (FOLLOW UP IN 1 WEEK ) Diet: Regular Other Ambulatory Orders: Complete Blood Count no Diff (Routine) Timeframe: [id number] Facility: [facility] - Location: Administration / Operations Ordered By: Clari Perales Provider Instructions: HOSPITAL FOLLOW UP WITH ADITI GORDILLO PA-C ON Sunday09/09/2018 @ 9:45 PM AT [facility] LAB WORK : COMPLETE BLOOD COUNT ON 09/09/18 DO NOT TAKE ASPIRIN, ALEVE, ADVIL, MOTRIN , NAPROXEN , IBUPROPHEN -YOUR BLOOD COUNTS ARE LOW FOLLOW UP WITH INFECTIOUS DISEASE DR MORAES IN 7 DAYS , PLEASE CALL OFFICE TO SCHEDULE APPOINTMENT Prescriptions: New doxycycline hyclate 100 mg Capsule 100 mg PO BID 14 Days Qty: 28 RF: 3 Continued ranitidine HCl 150 mg tablet 150 mg PO DAILY RF: 0 pravastatin 20 mg tablet 20 mg PO DAILY RF: 0 hydrochlorothiazide 25 mg tablet 25 mg PO DAILY RF: 0 Stand-Alone Forms: My [facility] Discharge Orders: Discharge Order (Routine); Ordered 09/03/18 Ordered By: Clari Jurado Admission Data Admit Date/Time: 08/31/18 19:18 Attending Provider: Clari Jurado Admit Provider: Clari Jurado Primary Care Provider: PCP,NO Other Providers: Jamel Rosales ; Cholo Moraes Service: Medical Other Interventions: Discharge Summary Assessment (RN) Last Done: 09/03/18 14:50 DC Date/Time DO NOT enter until pt leaves facility: 09/03/18 15:57
[2018-09-05 16:25] LABS: Anaplasma phagocytophila IgM <1:20 (<1:20); Ehrlichia chaff IgG Ab <1:64 (<1:64); Ehrlichia chaff IgM Ab <1:20 (<1:20)
== END 2018-09-03 15:57 | disposition home or self-care (01) | DRG 872 ==
LOC: 1E 19:18 → 2S 09-01 15:33 → 4E 09-02 21:02